=== PATIENT | male | born 1960 | race Caucasian/White ===

== ENCOUNTER 2024-03-19 10:21 | Inpatient (IN) | payer BC, SELFPAY ==
[2024-03-19] VITALS (7 sets, daily range): BP systolic 119–147; BP diastolic 75–99; PULSE 69–86; RESP 17–18; TEMP 36.7–37; O2SAT 93–98; BMI 38.0
--- NOTE | 2024-03-19 10:42 | XRR_ITS ---
PROCEDURE INFORMATION: Exam: XR Chest Exam date and time: 03/19/2024 11:32 AM Age: 63 years old Clinical indication: Cough and dyspnea; Additional info: Dyspnea/cough TECHNIQUE: Imaging protocol: Radiologic exam of the chest. Views: 1 view. COMPARISON: CT abdomen pelvis wo con [id number] 03/19/2024 11:23 AM FINDINGS: Lungs: No consolidating infiltrates are noted. There is mild linear scarring within the right midlung Pleural spaces: Unremarkable. No pleural effusion. No pneumothorax. Heart/Mediastinum: Unremarkable. No cardiomegaly. There is a calcified density within the left infrahilar region which may reflect a calcified lymph node. Bones/joints: There are postsurgical changes of the proximal humeri bilaterally XR/XR chest 1V portable [id number] IMPRESSION: No acute abnormality
--- NOTE | 2024-03-19 10:43 | ED_ITS ---
HPI - Abdominal Pain 2 General: Chief Complaint: Abdominal Pain Stated Complaint: abd pain Time Seen by Provider: 03/19/24 10:41 Source: patient Mode of arrival: ambulatory History of Present Illness: 61-year-old male presents to the emergen cy room with complaints of abdominal pain he said for the last 2 to 3 days. No bowel movement since then poor appetite. No fever sweats or chills. No hematochezia or melena. He denies any dysuria urgency or frequency or hematuria. MD elicited complaint: abdominal pain Associated Symptoms: Denies chills, dysuria and fever(s) Review of Systems 2 Const: Denies: fever(s) or chills Card: Denies: chest pain Resp: Denies: dyspnea GI: Denies: abdominal pain : Denies: dysuria, urinary frequency or urinary urgency Musc: Denies: neck pain or back pain Skin/Breast: Denies: rash PFSH ED 2 PFSH: Medical History History of kidney stones History of ITP Surgical History History of colonoscopy Family History Mother CAD (coronary artery disease) Hypertension Social History Smoking and tobacco/nicotine status: never used tobacco/nicotine Alcohol intake: never Substance/Drug Use: never Physical Exam 2 Const: COMMON NORMALS: no acute distress GENERAL APPEARANCE: cooperative and comfortable ORIENTATION/CONSCIOUSNESS: Yes awake, Yes oriented to person, Yes oriented to place and Yes oriented to time HENMT: COMMON NORMALS: normocephalic, atraumatic and hearing grossly normal bilaterally HEAD & SCALP: normocephalic and atraumatic Resp: COMMON NORMALS: normal respiratory effort, No retractions, No use of accessory muscles and clear to auscultation bilaterally AUSCULTATION: clear to auscultation bilaterally Cardio: COMMON NORMALS: regular rate, regular rhythm and No murmurs present (Cardio) RATE: regular rate RHYTHM: regular rhythm GI: COMMON NORMALS: Soft to palpation and No hepatosplenomegaly present A USCULTATION: Yes normoactive bowel sounds PALPATION: Yes Soft to palpation, No Tenderness to palpation present (GI), No Guarding due to palpation present (GI) and Yes No hepatosplenomegaly present Extremity: COMMON NORMALS: normal to inspection, capillary refill normal, no clubbing, cyanosis or edema, no calf tenderness and no pedal edema Neuro: SENSORIUM/ORIENTATION: Yes oriented to person, Yes oriented to place and Yes oriented to time Skin: COMMON NORMALS: no rashes or lesions noted GENERAL SKIN EXAM: no rashes or lesions noted Course 2 Vital Signs: Vital signs: Vital Signs Temperature 98.4 F 03/20/24 11:27 Pulse Rate 69 03/20/24 11:27 Respiratory Rate 18 03/20/24 11:27 Blood Pressure 151/88 03/20/24 11:27 Pulse Oximetry 95 03/20/24 11:27 Oxygen Delivery Me thod Room Air 03/20/24 11:27 MDM - Abdominal Pain Medical Decision Making Acute pancreatitis no sign of choledocholithiasis discussed Dr. Sam and there is no dilation of common bile duct, she does not believe there is any occult choledocholithiasis based on radiographic exams.. Will admit lipase is 1100. Triglycerides were normal discussed with hospitalist orders written Medical Records I reviewed the patient's medical records. Lab Data I reviewed the patient's lab results. 03/20/24 04:41 03/20/24 04:41 Labs/Radiology: Radiology Impressions Chest X-Ray 03/19/24 10:42 IMPRESSION: No acute abnormality Abdomen/Pelvis CT 03/19/24 10:46 IMPRESSION: 1. Cholecystitis versus pancreatitis described above. Pancreatitis is favored. 2. Inflammatory stranding with edema about the body of the pancreas worse about the pancreatic head with suggestion of pancreatic head edema suspicious for pancreatitis. Recommend correlation with pancreatic function studies. 3. Mild diffuse wall thickening involving the gallbladder with induration in the gallbladder fossa. Recommend correlation with biliary function studies. 4. Chronic RIGHT staghorn calculus. No hydronephrosis. 5. RIGHT renal cysts described above. 6. Enlarged prostate measuring 4.5 cm. Recommend correlation PSA. Gallbladder Ultrasound 03/19/24 11:21 IMPRESSION: 1. Very mild gallbladder hydrops. No significant wall thickening. No pericholecystic fluid identified by ultrasound. 2. Small amount of sludge within the gallbladder. No shadowing stones. 3. No common bile duct dilatation. 4. Simple cyst RIGHT kidney. Cholangiopancreatography MRI 03/19/24 13:08 IMPRESSION: 1. Normal common bile duct. No obstruction. 2. Normal pancreatic duct. 3. Acute inflammatory process centered around the second portion of the duodenum and the pancreatic head and to a lesser extent the gallbladder. Laboratory Results WBC 18.12 10^3/uL (3.29-11.43) H 03/19/24 10:50 RBC 4.80 10^6/uL (3.85-5.65) 03/19/24 10:50 Hgb 15.40 g/dL (11.27-16.99) 03/19/24 10:50 Hct 46.1 % (37-53) 03/19/24 10:50 MCV 96.0 fl (82-101) 03/19/24 10:50 MCH 32.1 pg (27-33) 03/19/24 10:50 MCHC 33.4 g/dL (30-55) 03/19/24 10:50 RDW 13.2 % (12.1-15.1) 03/19/24 10:50 Plt Count 135 10^3/cmm (157-399) L 03/19/24 10:50 MPV 11.9 fL (7.4-10.4) H 03/19/24 10:50 Neut % (Auto) 90.8 % 03/19/24 10:50 Lymph % (Auto) 2.7 % 03/19/24 10:50 [place] % (Auto) 5.7 % 03/19/24 10:50 Eos % (Auto) 0.3 % 03/19/24 10:50 Baso % (Auto) 0.1 % 03/19/24 10:50 Neut # (Auto) 16.45 10^3/uL (1.8-7.7) H 03/19/24 10:50 Lymph # (Auto) 0.5 10^3/uL (0.8-4.8) L 03/19/24 10:50 [place] # (Auto) 1.0 10^3/uL (0.2-0.9) H 03/19/24 10:50 Eos # (Auto) 0.1 10^3/uL (0.0-0.8) 03/19/24 10:50 Baso # (Auto) 0.0 10^3/uL (0.0-0.1) 03/19/24 10:50 Nucleated RBC % (auto) 0 % 03/19/24 10:50 Nucleated RBCs # 0.0 /100WBC 03/19/24 10:50 ESR 16 mm/hr (0-10) H 03/19/24 10:50 Sodium 138 mmol/L (136-145) 03/19/24 10:50 Potassium 3.9 mmol/L (3.5-5.1) 03/19/24 10:50 Chloride 99 mmol/L (98-107) 03/19/24 10:50 Carbon Dioxide 26 mmol/L (22-29) 03/19/24 10:50 Anion Gap 16.9 (5-19) 03/19/24 10:50 BUN 24 mg/dL (8-23) H 03/19/24 10:50 Creatinine 1.2 mg/dL (0.7-1.2) 03/19/24 10:50 GFR Calculation 61.3 mL/min (90-130) L 03/19/24 10:50 Glucose 127 mg/dL (65-115) H 03/19/24 10:50 Calculated Osmolality 292 mOsm/kg (285-295) 03/19/24 10:50 Lactic Acid 1.2 mmol/L (0.5-2.2) 03/19/24 11:20 Calcium 10.1 mg/dL (8.5-10.5) 03/19/24 10:50 Total Bilirubin 2.3 mg/dL (0.15-1.2) H 03/19/24 10:50 AST 29 U/L (0-40) 03/19/24 10:50 ALT 6 U/L (0-41) 03/19/24 10:50 Alkaline Phosphatase 99 U/L (40-130) 03/19/24 10:50 C-Reactive Protein 30.0 mg/L (0.0-4.9) H 03/19/24 10:50 Total Protein 8.0 g/dL (6.6-8.7) 03/19/24 10:50 Albumin 4.7 g/dL (3.5-5.2) 03/19/24 10:50 Globulin 3.3 g/dL (1.3-4.6) 03/19/24 10:50 Triglycerides 110 mg/dL (0-150) 03/19/24 10:50 Lipase 1119 U/L (13-60) H 03/19/24 10:50 Procalcitonin 0.20 ng/mL (0-0.5) 03/19/24 10:50 Urine Color Yellow (Yellow) 03/19/24 11:19 Urine Appearance Cloudy (CLEAR) A 03/19/24 11:19 Urine pH 5 (5-7) 03/19/24 11:19 Ur Specific [place] 1.025 (1.005-1.030) 03/19/24 11:19 Urine Protein 2+ (Negative) H 03/19/24 11:19 Urine Glucose (UA) Norm (Normal) 03/19/24 11:19 Urine Ketones 1+ (Negative) H 03/19/24 11:19 Urine Blood 2+ (Negative) H 03/19/24 11:19 Urine Nitrate Positive (Negative) H 03/19/24 11:19 Urine Bilirubin 1+ (Negative) H 03/19/24 11:19 Urine Urobilinogen 4 mg/dL (Negative) H 03/19/24 11:19 Ur Leukocyte Esterase 2+ (Negative) H 03/19/24 11:19 Urine RBC 10-15 /hpf (0-2) H 03/19/24 11:19 Urine WBC 25-40 /hpf (0-5) H 03/19/24 11:19 Ur Squamous Epith Cells 0-4 /hpf (0-5) H 03/19/24 11:19 Amorphous Sediment Not Reportable 03/19/24 11:19 Urine Bacteria 2+ /hpf (NONE) H 03/19/24 11:19 Urine Mucus 1+ /hpf 03/19/24 11:19 All radiology interpretation(s) finalized by discharge Discharge Plan Discharge Patient Disposition: Admitted As Inpatient Admit Provider: Deon Hsu Clinical Impression: Pancreatitis, Cholecystitis Condition: Stable Coding Level of Care Code ED Transitional Nurse for Skye Lerma
--- NOTE | 2024-03-19 10:46 | CT_ITS ---
WS: [id number] CT ABDOMEN PELVIS TECHNIQUE: Noncontrast CT of the abdomen and pelvis with coronal and sagittal reformatted images. CLINICAL INFORMATION: Abdominal pain COMPARISON: None. DLP: 1200.[address] scans at [facility] use at least one of these dose optimization techniques: automated e xposure control; mA and/or kV adjustment per patient size (includes targeted exams where dose is matc hed to clinical indication); or iterative reconstruction. FINDINGS: Inflammatory stranding and edema about the pancreas worse about the pancreatic head. This extends to involve the adjacent traversing duodenum. In addition there is mild thickening and induration in the gallbladder fossa. Recommend correlation with pancreatic enzymes and biliary function studies. Pancre atitis versus cholecystitis. No visualized radiopaque gallstones. No intrahepatic biliary ductal dila tation. Chronic staghorn calculus RIGHT renal pelvis. No hydronephrosis. Ureters are decompressed bilaterally . RIGHT renal cysts measuring 4.4 cm upper pole and 3.8 cm lower pole. Normal GE junction. Normal sigmoid colon. Appendix is not visualized. No evidence of acute appendicitis. Normal caliber abdominal aorta. Mild aortic calcification. Small fat-containing umbilical hernia. Mil d prostate enlargement measuring 4.5 cm. Mild diffuse bladder wall thickening. A few sigmoid divertic tone. No evidence of acute diverticulitis. Colon is decompressed. Trace fluid in the pelvis. Fat-conta ining inguinal hernias. CT/CT abdomen pelvis wo con [id number] IMPRESSION: 1. Cholecystitis versus pancreatitis described above. Pancreatitis is favored. 2. Inflammatory stranding with edema about the body of the pancreas worse abou t the pancreatic head with suggestion of pancreatic head edema suspicious for p ancreatitis. Recommend correlation with pancreatic function studies. 3. Mild diffuse wall thickening involving the gallbladder with induration in t he gallbladder fossa. Recommend correlation with biliary function studies. 4. Chronic RIGHT staghorn calculus. No hydronephrosis. 5. RIGHT renal cysts described above. 6. Enlarged prostate measuring 4.5 cm. Recommend correlation PSA.
[2024-03-19 10:56] LABS: Basophils % 0.1 %; Eosinophils # 0.1 10^3/uL (0.0-0.8); Eosinophils % 0.3 %; Hematocrit 46.1 % (37-53); Lymphocytes # 0.5 10^3/uL (0.8-4.8); Lymphocytes % 2.7 %; Mean Corpuscular HGB Conc 33.4 g/dL (30-55); Mean Corpuscular Hemoglobin 32.1 pg (27-33); Mean Platelet Volume 11.9 fL (7.4-10.4); Monocytes % 5.7 %; Neutrophils # 16.45 10^3/uL (1.8-7.7); Neutrophils % 90.8 %; Nucleated Red Blood Cells % 0 %; Platelet Count 135 10^3/cmm (157-399); Red Cell Distribution Width 13.2 % (12.1-15.1); White Blood Count 18.12 10^3/uL (3.29-11.43)
[2024-03-19 11:15] LABS: Alanine Aminotransferase 6 U/L (0-41); Albumin Level 4.7 g/dL (3.5-5.2); Alkaline Phosphatase 99 U/L (40-130); Anion Gap 16.9 (5-19); Aspartate Amino Transferase 29 U/L (0-40); Blood Urea Nitrogen 24 mg/dL (8-23); Calcium 10.1 mg/dL (8.5-10.5); Carbon Dioxide 26 mmol/L (22-29); Chloride 99 mmol/L (98-107); Creatinine Clr Calc Pharmacy 77.9993; Globulin 3.3 g/dL (1.3-4.6); Glomerular Filtration Rate 61.3 mL/min (90-130); Glucose 127 mg/dL (65-115); Osmolality Calculated 292 mOsm/kg (285-295); Potassium 3.9 mmol/L (3.5-5.1); Sodium 138 mmol/L (136-145); Total Bilirubin 2.3 mg/dL (0.15-1.2)
[2024-03-19] MEDS: sodium chloride 0.9% 1,000 ML 999 ML IV ×2 (11:17→11:42)
--- NOTE | 2024-03-19 11:21 | US_ITS ---
WS: [id number] RIGHT UPPER QUADRANT ULTRASOUND HISTORY: Elevated T. bili leukocytosis COMPARISON: CT 03/19/2024 Liver: 20.5 cm in length. Mildly enlarged liver. No intrahepatic duct dilatation. Portal Vein: Not imaged. Gallbladder: Very mild gallbladder hydrops. There is a very small amount of sludge within the gallbla dder. No shadowing stones are identified. There are a couple echogenic foci in the gallbladder which may be small stones within the sludge or debris. CBD: 0.5 cm Pancreas: Not visualized. Right kidney: 10.6 cm in length. Normal size kidney. Simple cyst upper pole 3.0 x 3.6 x 3.0 cm. Nonob structing calcifications in the central renal pelvis. The largest measures 1.4 x 0.4 x 0.8 cm. Aorta and IVC: Unremarkable abdominal aorta and IVC. No ascites. US/US gall bladder [id number] IMPRESSION: 1. Very mild gallbladder hydrops. No significant wall thickening. No perichole cystic fluid identified by ultrasound. 2. Small amount of sludge within the gallbladder. No shadowing stones. 3. No common bile duct dilatation. 4. Simple cyst RIGHT kidney.
[2024-03-19 11:22] LABS: Lipase 1119 U/L (13-60)
[2024-03-19 11:43] LABS: Lactic Sepsis W/Reflex 1.2 mmol/L (0.5-2.2)
[2024-03-19 11:48] LABS: Protein Urine 2+ (Negative); Specific Gravity, Urine 1.025 (1.005-1.030); Urine Appearance Cloudy (CLEAR); Urine Color Yellow (Yellow); pH Urine 5 (5-7)
[2024-03-19 11:49] LABS: Add Urine Culture? Yes; Add Urine Microscopic? YES; Bacteria Urine 2+ /hpf; Bilirubin Urine 1+ (Negative); Blood Urine 2+ (Negative); Glucose Urine UA Norm (Normal); Ketones Urine 1+ (Negative); Leukocyte Esterase Urine 2+ (Negative); Mucus Urine 1+ /hpf; Nitrate Urine Positive (Negative); Squamous Epithelial Cell Urine 0-4 /hpf (0-5); Urobilinogen Urine 4 mg/dL (Negative); WBC Urine 25-40 /hpf (0-5)
[2024-03-19 11:50] LABS: Triglycerides 110 mg/dL (0-150)
[2024-03-19] MEDS: piperacillin-tazobactam 3.375 GM in sodium chloride 0.9% (plus) 50 ML IV ×2 (12:46→17:16)
--- NOTE | 2024-03-19 13:08 | MR_ITS ---
WS: [id number] MRCP (MAGNETIC RESONANCE CHOLANGIOPANCREATOGRAPHY) HISTORY: Gallstone pancreatitis. COMPARISON: CT abdomen 03/19/2024, ultrasound 03/19/2024. TECHNIQUE: Multiple sequences are performed to evaluate the intra and extrahepatic ducts. Common bile duct is well demonstrated and normal measuring 4 mm. No filling defect or obstruction. No intrahepatic dilatation. Normal pancreatic duct at 3 mm also. Reidentified is inflammation surrounding the pancreatic head and duodenum and to a lesser extent the gallbladder. There is fluid and inflammation extending along the RIGHT paracolic gutter. No stones are identified within the gallbladder lumen. There is a very small amount of adjacent peric holecystic fluid. There are a few tiny scattered cysts within the liver. Multiple RIGHT renal cysts. The largest is lobulated measuring 3.8 x 5.2 cm from the lower pole. MR/MR MRCP [id number] IMPRESSION: 1. Normal common bile duct. No obstruction. 2. Normal pancreatic duct. 3. Acute inflammatory process centered around the second portion of the duoden um and the pancreatic head and to a lesser extent the gallbladder.
--- NOTE | 2024-03-19 13:17 | PC.NURSE ---
PT TAKEN TO MRI IN WHEELCHAIR.
[2024-03-19 13:36] LABS: Erythrocyte Sedimentation Rate 16 mm/hr (0-10)
--- NOTE | 2024-03-19 15:11 | PM.HP ---
Providers/Chief Complaint Admitting Physician: Deon Hsu MD Chief Complaint: abd pain History of Present Illness Eh Win is a 63 year old male with a past medical history of ITP, on Promacta, hypertension, history of Parkinson's disease, who presents [facility] due to abdominal pain. Patient tells me that yesterday evening, he started develop epigastric pain, right upper quadrant pain, denies any fevers, no chills, no bloody or black stools, no lack of stooling, denies any alcohol use, he has been off steroids for his ITP since 2019, yesterday after dinner he did experience epigastric and right upper quadrant pain, denies any recent trauma, denies a history of cholecystitis, Review of Systems Const: Denies: fever(s) Card: Denies: chest pain Resp: Denies: dyspnea GI: Reports: abdominal pain Medications/Allergies Home Medications Medication Instructions Recorded Confirmed Last Taken Type carbidopa ER 25 mg-levodopa 100 mg 1 tab PO TID 03/19/24 03/19/24 03/19/24 History tablet,extended release coenzyme Q10 100 mg capsule 200 mg PO BID 03/19/24 03/19/24 03/19/24 History (CoQ-10) eltrombopag olamine 12.5 mg tablet 12.5 mg PO .QOD 03/19/24 03/19/24 Unknown History (Promacta) fluticasone propionate 50 1 spray intranasal DAILY PRN 03/19/24 03/19/24 Unknown History mcg/actuation nasal ALLERGIES spray,suspension halobetasol propionate 0.05 % 1 applic topical BID PRN UNKNOWN 03/19/24 03/19/24 Unknown History topical cream hydrochlorothiazide 25 mg tablet 25 mg PO DAILY 03/19/24 03/19/24 03/19/24 History olmesartan 20 mg tablet 20 mg PO DAILY 03/19/24 03/19/24 03/19/24 History rasagiline 1 mg tablet 1 mg PO DAILY 03/19/24 03/19/24 03/19/24 History Allergies Allergy/AdvReac Type Severity Reaction Status Date / Time No Known Allergies Allergy Verified 03/19/24 10:43 PFSH Acute PFSH: Medical History History of kidney stones History of ITP Surgical History History of colonoscopy Family History Mother CAD (coronary artery disease) Hypertension Social History Smoking and tobacco/nicotine status: never used tobacco/nicotine Alcohol intake: never Substance/Drug Use: never Vitals/I&O/Wt Last Vital Signs Temp 98.0 F 03/19/24 10:38 Pulse 74 03/19/24 14:06 Resp 17 03/19/24 10:38 BP 147/99 03/19/24 14:06 Pulse Ox 98 03/19/24 14:06 O2 Del Method Room Air 03/19/24 14:06 03/19/24 03/19/24 03/19/24 06:59 14:59 22:59 Intake Total 2049 Balance 2049 Weight last 48 hrs Weight 113.398 kg Physical Exam Const: COMMON NORMALS: no acute distress and patient oriented x3 HENMT: COMMON NORMALS: normocephalic HEAD & SCALP: normocephalic Neck/C-Spine: COMMON NORMALS: no JVD Resp: COMMON NORMALS: normal respiratory effort, No retractions, No use of accessory muscles and clear to auscultation bilaterally AUSCULTATION: clear to auscultation bilaterally Cardio: COMMON NORMALS: regular rate, regular rhythm, S1 normal heart sound present and S2 normal heart sound present RATE: regular rate RHYTHM: regular rhythm HEART SOUNDS: S1 normal heart sound present and S2 normal heart sound present GI: COMMON NORMALS: Normal to inspection, nondistended, normoactive bowel sounds present INSPECTION: Yes normal to inspection and Yes abdominal distension AUSCULTATION: Yes normoactive bowel sounds OTHER: Epigastric discomfort, on palpation, right upper quadrant pain on palpation Extremity: COMMON NORMALS: no calf tenderness and no pedal edema Neuro: COMMON NORMALS: patient oriented x3 Psych: COMMON NORMALS: mental status grossly normal Data 03/19/24 10:50 03/19/24 10:50 Micro: Microbiology 03/19/24 11:15 Blood Culture - Preliminary Blood SPECIMEN COLLECTED 03/19/24 11:20 Blood Culture - Preliminary Blood SPECIMEN COLLECTED A&P Assessment and plan (1) Pancreatitis: (2) Cholecystitis: (3) UTI (urinary tract infection): Plan Acute pancreatitis, with concerns for possible gallstone pancreatitis, with acute cholecystitis gallbladder US 1. Very mild gallbladder hydrops. No significant wall thickening. No pericholecystic fluid identified by ultrasound. 2. Small amount of sludge within the gallbladder. No shadowing stones. 3. No common bile duct dilatation. 4. Simple cyst RIGHT kidney. CT/CT abdomen pelvis wo con [id number] IMPRESSION: 1. Cholecystitis versus pancreatitis described above. Pancreatitis is favored. 2. Inflammatory stranding with edema about the body of the pancreas worse about the pancreatic head with suggestion of pancreatic head edema suspicious for pancreatitis. Recommend correlation with pancreatic function studies. 3. Mild diffuse wall thickening involving the gallbladder with induration in the gallbladder fossa. Recommend correlation with biliary function studies. 4. Chronic RIGHT staghorn calculus. No hydronephrosis. 5. RIGHT renal cysts described above. 6. Enlarged prostate measuring 4.5 cm. Recommend correlation PSA. mrcp MR/MR MRCP [id number] IMPRESSION: 1. Normal common bile duct. No obstruction. 2. Normal pancreatic duct. 3. Acute inflammatory process centered around the second portion of the duodenum and the pancreatic head and to a lesser extent the gallbladder. ? Plan ? N.p.o. ? IV fluids ? Continue Zosyn ? Bowel rest ? Serial abdominal exams ? Spoke to general surgery, Dr. Churchill, discussed ordering MRCP, results as above, will consult for consideration of cholecystectomy ? Full code ? SCDs for DVT prophylaxis, Lovenox UTI, with history of chronic right staghorn colliculi ? Plan ? Follow urine cultures ? Follow blood cultures ? Continue Zosyn History of ITP Attestations Medical Necessity Statement*: Patient requires hospitalization, inpatient, greater than 2 midnights, for acute pancreatitis, with concern for gallstone pancreatitis, with acute cholecystitis Diagnoses Pancreatitis K85.90 Cholecystitis K81.9 UTI (urinary tract infection) N39.0
[2024-03-19 15:37] LABS: Lactic Sepsis W/Reflex 1.5 mmol/L (0.5-2.2)
[2024-03-19] MEDS: sodium chloride 0.9% 1,000 ML 125 ML IV ×2 (15:43→23:34)
[2024-03-19 15:47] LABS: Chol HDL Ratio 3.74 mg/dL (1.0-5.00); Cholesterol 142 mg/dL (0-200); HDL Cholesterol 38 mg/dL (60-100); LDL Cholesterol Calculated 84 mg/dL (50-129); LDL HDL Ratio 2.21 RATIO (0.00-3.22); NT Pro B Type Natriuretic Pept 165 pg/mL (0-125); Thyroid Stimulating Hormone 2.05 uIU/mL (0.27-4.20); Triglycerides 100 mg/dL (0-150)
[2024-03-19] MEDS: pantoprazole 40 mg SDV IVP (15:50)
[2024-03-19] MEDS: carbidopa-levodopa 25-100mg Tablet 1 EACH PO (20:47)
[2024-03-19] MEDS: acetaminophen 325 mg Tablet 650 MG PO (20:52)
--- NOTE | 2024-03-19 21:08 | PC.NURSE ---
Patient declined scheduled dose of lovenox due to history of ITP. Education provided.
[2024-03-20] VITALS (8 sets, daily range): BP systolic 121–151; BP diastolic 66–90; PULSE 68–78; RESP 14–18; TEMP 36.8–37.2; O2SAT 93–95
[2024-03-20] MEDS: piperacillin-tazobactam 3.375 GM in sodium chloride 0.9% (plus) 50 ML IV ×3 (01:07→17:36)
[2024-03-20] MEDS: HYDROcodone-acetaminophen 5-325 mg Tablet 1 TAB PO ×3 (01:19→21:15)
[2024-03-20 05:30] LABS: Basophils % 0.1 %; Eosinophils # 0.2 10^3/uL (0.0-0.8); Eosinophils % 1.5 %; Hematocrit 39.8 % (37-53); Lymphocytes # 0.5 10^3/uL (0.8-4.8); Lymphocytes % 3.3 %; Mean Corpuscular HGB Conc 33.2 g/dL (30-55); Mean Corpuscular Hemoglobin 31.9 pg (27-33); Mean Corpuscular Volume 96.1 fl (82-101); Mean Platelet Volume 13.6 fL (7.4-10.4); Monocytes # 1.2 10^3/uL (0.2-0.9); Monocytes % 8.1 %; Neutrophils # 12.68 10^3/uL (1.8-7.7); Neutrophils % 86.7 %; Nucleated Red Blood Cells % 0 %; Platelet Count 108 10^3/cmm (157-399); Red Blood Count 4.14 10^6/uL (3.85-5.65); Red Cell Distribution Width 13.5 % (12.1-15.1); White Blood Count 14.63 10^3/uL (3.29-11.43)
[2024-03-20 05:55] LABS: Alanine Aminotransferase < 5 U/L (0-41); Albumin Level 3.8 g/dL (3.5-5.2); Alkaline Phosphatase 76 U/L (40-130); Anion Gap 13.6 (5-19); Aspartate Amino Transferase 16 U/L (0-40); Blood Urea Nitrogen 20 mg/dL (8-23); Calcium 8.7 mg/dL (8.5-10.5); Carbon Dioxide 23 mmol/L (22-29); Chloride 109 mmol/L (98-107); Creatinine Clr Calc Pharmacy 83.0172; Globulin 2.6 g/dL (1.3-4.6); Glomerular Filtration Rate 67.8 mL/min (90-130); Glucose 111 mg/dL (65-115); Magnesium 1.9 mg/dL (1.7-2.3); Osmolality Calculated 297 mOsm/kg (285-295); Phosphorus 2.5 mg/dL (2.5-4.5); Potassium 3.6 mmol/L (3.5-5.1); Sodium 142 mmol/L (136-145); Total Bilirubin 2.1 mg/dL (0.15-1.2); Total Protein 6.4 g/dL (6.6-8.7)
[2024-03-20] MEDS: carbidopa-levodopa 25-100mg Tablet 1 EACH PO ×3 (08:30→21:15)
[2024-03-20] MEDS: sodium chloride 0.9% 1,000 ML 125 ML IV (08:30)
[2024-03-20] MEDS: morphine 4 mg/mL SDV 1 mL 2 MG IVP (08:44)
[2024-03-20] MEDS: amlodipine 10 mg Tablet PO (12:13)
[2024-03-20] MEDS: ELTROMBOPAG OLAMINE 12.5 EACH PO (12:50)
--- NOTE | 2024-03-20 14:30 | P.CONIM_ITS ---
Providers/Reason For Consult 2 Consulting Physician/Specialty*: Dr. Alton Churchill, DO/General surgery Reason for Consult*: Pancreatitis/cholecystitis Attending Physician: Deon Hsu MD History of Present Illness History of Present Illness Eh Win is a 63 year old male who presented to the hospital with a 3-day history of epigastric abdominal pain that radiated to his back. Eating made the pain worse. Nothing is made the pain better. He does report nausea but denies any emesis. Denies any hematochezia and/or melena. A CT of the abdomen pelvis showed pancreatitis. His lipase was 1100 on admission and his bilirubin was over 2. CT also showed some hydrops of the gallbladder along with inflammation. MRCP was performed and there was no obstruction of the, bile duct. Sludge and stones were seen in the gallbladder. He reports that he does not drink alcohol. He does take hydrochlorothiazide for blood pressure. Review of Systems 2 General: Reports: 10 or more systems reviewed and unremarkable except in HPI and below Medications/Allergies Home Medications Medication Instructions Recorded Confirmed Last Taken Type carbidopa ER 25 mg-levodopa 100 mg 1 tab PO TID 03/19/24 03/19/24 03/19/24 History tablet,extended release coenzyme Q10 100 mg capsule 200 mg PO BID 03/19/24 03/19/24 03/19/24 History (CoQ-10) eltrombopag olamine 12.5 mg tablet 12.5 mg PO .QOD 03/19/24 03/19/24 Unknown History (Promacta) fluticasone propionate 50 1 spray intranasal DAILY PRN 03/19/24 03/19/24 Unknown History mcg/actuation nasal ALLERGIES spray,suspension halobetasol propionate 0.05 % 1 applic topical BID PRN UNKNOWN 03/19/24 03/19/24 Unknown History topical cream hydrochlorothiazide 25 mg tablet 25 mg PO DAILY 03/19/24 03/19/24 03/19/24 History olmesartan 20 mg tablet 20 mg PO DAILY 03/19/24 03/19/24 03/19/24 History rasagiline 1 mg tablet 1 mg PO DAILY 03/19/24 03/19/24 03/19/24 History Allergies Allergy/AdvReac Type Severity Reaction Status Date / Time No Known Allergies Allergy Verified 03/19/24 10:43 Current Medications Generic Name Dose Route Start Last Admin Trade Name Freq PRN Reason Stop Dose Admin Acetaminophen 650 mg 03/19/24 15:12 03/19/24 20:52 Acetaminophen 325 Mg Tablet PO 650 mg Q6H PRN Administration Mild Pain Or Temp >/= 101 Hydrocodone Bitart/Acetaminophen 1 tab 03/20/24 01:12 03/20/24 12:16 Hydrocodone-Acetaminophen 5-325 Mg Tablet PO 1 tab Q4H PRN Administration MODERATE PAIN Amlodipine Besylate 10 mg 03/20/24 12:00 03/20/24 12:13 Amlodipine 10 Mg Tablet PO 10 mg DAILY NATALY Administration Carbidopa/Levodopa 1 each 03/19/24 15:45 03/20/24 08:30 Carbidopa-Levodopa 25-100mg Tablet PO 1 each TID NATALY Administration Enoxaparin Sodium 40 mg 03/19/24 21:00 03/19/24 20:54 Enoxaparin 40 Mg/0.4 Ml Syringe SUBCUT Not Given Q24H NATALY Sodium Chloride 1,000 mls @ 175 mls/hr 03/19/24 15:12 03/20/24 08:30 Sodium Chloride 0.9% IV 125 mls/hr .Q5H43M NATALY Administration Piperacillin Sod/Tazobactam 50 mls @ 12.5 mls/hr 03/19/24 17:00 03/20/24 12:51 Sod 3.375 gm/ Sodium Chloride IV Infused Q8H NATALY Infusion Protocol Morphine Sulfate 2 mg 03/19/24 15:12 03/20/24 08:44 Morphine 4 Mg/Ml Sdv 1 Ml IVP 2 mg Q4H PRN Administration SEVERE PAIN Non-Formulary Medication 1 mg 03/20/24 09:00 03/20/24 08:32 Rasagiline PO Not Given DAILY NATALY Non-Formulary Medication 12.5 mg 03/20/24 09:00 03/20/24 12:50 Eltrombopag Olamine [Promacta] PO 12.5 mg EVERY OTHER DAY NATALY Administration Pantoprazole Sodium 40 mg 03/19/24 15:12 03/19/24 15:50 Pantoprazole 40 Mg Sdv IVP 40 mg Q24H NATALY Administration PFSH Acute 2 PFSH: Medical History History of kidney stones History of ITP Surgical History History of colonoscopy Family History Mother CAD (coronary artery disease) Hypertension Social History Smoking and tobacco/nicotine status: never used tobacco/nicotine Alcohol intake: never Substance/Drug Use: never Vitals/I&O/Wt Last Vital Signs Temp 98.4 F 03/20/24 11:27 Pulse 69 03/20/24 11:27 Resp 18 03/20/24 11:27 BP 151/88 03/20/24 11:27 Pulse Ox 95 03/20/24 11:27 O2 Del Method Room Air 03/20/24 11:27 03/19/24 03/20/24 03/20/24 22:59 06:59 14:59 Intake Total 250 / 2300 1031.25 / 3331.25 1050 / 1050 Balance 250 / 2300 1031.25 / 3331.25 1050 / 1050 Weight last 48 hrs Weight 238 lb 6.4 oz Weight 250 lb Weight 250 lb Physical Exam 2 Narrative: General : Patient is well developed , no acute distress, oriented x3 Head : Normal cephalic, a-traumatic. Ears : Pinnae and external canal are normal. Hearing is normal. Eyes : PERRLA, Sclera and injection are normal. No conjunctival discharge. Nose : Mucous membranes are without erythema. Throat : buccal mucosa is normal, gums are without significant recession or hypertrophy. Lungs : Equal chest rise bilaterally, no use of accessory muscles, trachea is midline. Cor : Rate and rhythm are normal. Abdomen : Soft, ND, mild epigastric tenderness, negative Zavala's, no g/r/m Extremities : No edema, no cyanosis or clubbing, dorsalis pedis pulses are present bilaterally, non-tender to palpation of calves. Upper extremities are normal bilaterally. Back : non-tender to palpation, no CVA tenderness. Neuro : CN II - XII intact, Upper and lower extremities have equal and full strength Data 03/20/24 04:41 03/20/24 04:41 Micro: Microbiology 03/19/24 11:15 Blood Culture - Preliminary Blood NEGATIVE TO DATE 03/19/24 11:20 Blood Culture - Preliminary Blood NEGATIVE TO DATE 03/19/24 11:19 Urine Culture - Preliminary Urine,Clean Catch Gram Negative Rods A&P Assessment and plan (1) Gallstone pancreatitis: Plan IV fluids Clear liquid diet N.p.o. after midnight Laparoscopic cholecystectomy tomorrow The risks and benefits of the procedure, including but not limited to, bleeding, infection, scar, numbness, pain, damage to surrounding structures, damage to common bile duct requiring additional surgery, conversion to an open procedure, were explained to the patient. He is understanding of the risks and wishes to proceed. Coding Level of Care Code 98697 Diagnoses Gallstone pancreatitis K85.10
--- NOTE | 2024-03-20 15:11 | P.PN_ITS ---
Subjective 2 Subjective: Patient was seen this morning, denies any abdominal pain, has not passed any gas from below, has not had a bowel movement, does report low back pain Vitals/I&O/Wt Last Vital Signs Temp 98.4 F 03/20/24 11:27 Pulse 69 03/20/24 11:27 Resp 18 03/20/24 11:27 BP 151/88 03/20/24 11:27 Pulse Ox 95 03/20/24 11:27 O2 Del Method Room Air 03/20/24 11:27 03/20/24 03/20/24 03/20/24 06:59 14:59 22:59 Intake Total 1031.25 / 3331.25 1050 / 1050 Balance 1031.25 / 3331.25 1050 / 1050 Weight last 48 hrs Weight 108.136 kg Weight 113.398 kg Weight 113.398 kg Physical Exam 2 Const: COMMON NORMALS: no acute distress and patient oriented x3 Resp: COMMON NORMALS: normal respiratory effort, No retractions, No use of accessory muscles and clear to auscultation bilaterally AUSCULTATION: clear to auscultation bilaterally Cardio: COMMON NORMALS: regular rate, regular rhythm, S1 normal heart sound present and S2 normal heart sound present RATE: regular rate RHYTHM: r egular rhythm HEART SOUNDS: S1 normal heart sound present and S2 normal heart sound present GI: OTHER: Abdomen soft, distended, good bowel sounds in all 4 quadrants, no guarding, no rebound, rigidity Extremity: COMMON NORMALS: no pedal edema Neuro: COMMON NORMALS: patient oriented x3 Psych: COMMON NORMALS: mental status grossly normal Data 03/20/24 04:41 03/20/24 04:41 Micro: Microbiology 03/19/24 11:15 Blood Culture - Preliminary Blood NEGATIVE TO DATE 03/19/24 11:20 Blood Culture - Preliminary Blood NEGATIVE TO DATE 03/19/24 11:19 Urine Culture - Preliminary Urine,Clean Catch Gram Negative Rods A&P Assessment and plan (1) Pancreatitis: (2) Cholecystitis: (3) UTI (urinary tract infection): Plan Acute pancreatitis, with concerns for gallstone pancreatitis, with acute cholecystitis gallbladder US 1. Very mild gallbladder hydrops. No significant wall thickening. No pericholecystic fluid identified by ultrasound. 2. Small amount of sludge within the gallbladder. No shadowing stones. 3. No common bile duct dilatation. 4. Simple cyst RIGHT kidney. CT/CT abdomen pelvis wo con [id number] IMPRESSION: 1. Cholecystitis versus pancreatitis described above. Pancreatitis is favored. 2. Inflammatory stranding with edema about the body of the pancreas worse about the pancreatic head with suggestion of pancreatic head edema suspicious for pancreatitis. Recommend correlation with pancreatic function studies. 3. Mild diffuse wall thickening involving the gallbladder with induration in the gallbladder fossa. Recommend correlation with biliary function studies. 4. Chronic RIGHT staghorn calculus. No hydronephrosis. 5. RIGHT renal cysts described above. 6. Enlarged prostate measuring 4.5 cm. Recommend correlation PSA. mrcp MR/MR MRCP [id number] IMPRESSION: 1. Normal common bile duct. No obstruction. 2. Normal pancreatic duct. 3. Acute inflammatory process centered around the second portion of the duodenum and the pancreatic head and to a lesser extent the gallbladder. ? Plan ? N.p.o. ? IV fluids ? Continue Zosyn ? Bowel rest ? Serial abdominal exams ? Spoke to general surgery, Dr. Churchill, discussed ordering MRCP, results as above, plan on cholecystectomy tomorrow ? Full code ? SCDs for DVT prophylaxis, Lovenox UTI, with history of chronic right staghorn colliculi ? Plan ? Follow urine cultures ? Follow blood cultures ? Continue Zosyn History of ITP, resume home medication Attestations 2 Medical Necessity Statement*: Patient requires hospitalization for acute pancreatitis, gallstone pancreatitis, UTI Diagnoses Pancreatitis K85.90 Cholecystitis K81.9 UTI (urinary tract infection) N39.0
[2024-03-20] MEDS: sodium chloride 0.9% 1,000 ML 175 ML IV ×2 (16:06→22:10)
[2024-03-20] MEDS: pantoprazole 40 mg SDV IVP (16:06)
[2024-03-21] VITALS (21 sets, daily range): BP systolic 115–147; BP diastolic 64–85; PULSE 66–86; RESP 14–30; TEMP 36.4–37.3; O2SAT 91–99
[2024-03-21] MEDS: piperacillin-tazobactam 3.375 GM in sodium chloride 0.9% (plus) 50 ML IV ×3 (00:28→15:28)
[2024-03-21] MEDS: morphine 4 mg/mL SDV 1 mL 2 MG IVP ×2 (00:37→09:51)
[2024-03-21] MEDS: HYDROcodone-acetaminophen 5-325 mg Tablet 1 TAB PO ×2 (03:10→09:51)
[2024-03-21] MEDS: sodium chloride 0.9% 1,000 ML 175 ML IV ×4 (04:05→21:23)
[2024-03-21 06:20] LABS: Anion Gap 15.6 (5-19); Blood Urea Nitrogen 16 mg/dL (8-23); Calcium 8.1 mg/dL (8.5-10.5); Carbon Dioxide 21 mmol/L (22-29); Chloride 106 mmol/L (98-107); Creatinine Clr Calc Pharmacy 114.1487; Glucose 107 mg/dL (65-115); Osmolality Calculated 290 mOsm/kg (285-295); Potassium 3.6 mmol/L (3.5-5.1); Sodium 139 mmol/L (136-145)
[2024-03-21 06:27] LABS: Magnesium 1.9 mg/dL (1.7-2.3)
[2024-03-21 06:31] LABS: Basophils % 0.1 %; Eosinophils # 0.3 10^3/uL (0.0-0.8); Eosinophils % 1.5 %; Hematocrit 41.3 % (37-53); Lymphocytes # 0.7 10^3/uL (0.8-4.8); Lymphocytes % 3.9 %; Mean Corpuscular HGB Conc 33.2 g/dL (30-55); Mean Corpuscular Volume 96.5 fl (82-101); Mean Platelet Volume 11.9 fL (7.4-10.4); Monocytes # 1.3 10^3/uL (0.2-0.9); Monocytes % 7.7 %; Neutrophils # 14.53 10^3/uL (1.8-7.7); Neutrophils % 86.4 %; Nucleated Red Blood Cells % 0 %; Platelet Count 100 10^3/cmm (157-399); Red Blood Count 4.28 10^6/uL (3.85-5.65); White Blood Count 16.84 10^3/uL (3.29-11.43)
[2024-03-21] MEDS: amlodipine 10 mg Tablet PO (09:51)
[2024-03-21] MEDS: carbidopa-levodopa 25-100mg Tablet 1 EACH PO ×3 (09:52→20:17)
--- NOTE | 2024-03-21 11:48 | P.ANESASSM_ITS ---
Pre-Anesthetic Assessment Height/Weight: Height 1.73 m Weight 108.136 kg Temp Pulse Resp BP Pulse Ox O2 Del Method 98.4 F 69 18 137/81 93 Room Air 03/21/24 11:39 03/21/24 11:39 03/21/24 11:39 03/21/24 11:39 03/21/24 11:39 03/21/24 11:39 Operation Date: 03/21/24 13:35 Proposed Procedures p Laparoscopic Cholecystectomy(Right) - Alton Churchill, DO Social No alcohol and No tobacco Exam alert, oriented x 3, clear to auscultation bilaterally and regular rate & rhythm Airway Submandibular: within normal limits Cervical ROM: within normal limits Mallampati: Class II History/ROS No significant history except as noted GI Gallstone pancreatitis Anesthetic Plan ASA status: 2E Anesthesia: General Medications/Allergies Home Medications Medication Instructions Recorded Confirmed Last Taken Type carbidopa ER 25 mg-levodopa 100 mg 1 tab PO TID 03/19/24 03/19/24 03/19/24 History tablet,extended release coenzyme Q10 100 mg capsule 200 mg PO BID 03/19/24 03/19/24 03/19/24 History (CoQ-10) eltrombopag olamine 12.5 mg tablet 12.5 mg PO .QOD 03/19/24 03/19/24 Unknown History (Promacta) fluticasone propionate 50 1 spray intranasal DAILY PRN 03/19/24 03/19/24 Unknown History mcg/actuation nasal ALLERGIES spray,suspension halobetasol propionate 0.05 % 1 applic topical BID PRN UNKNOWN 03/19/24 03/19/24 Unknown History topical cream hydrochlorothiazide 25 mg tablet 25 mg PO DAILY 03/19/24 03/19/24 03/19/24 History olmesartan 20 mg tablet 20 mg PO DAILY 03/19/24 03/19/24 03/19/24 History rasagiline 1 mg tablet 1 mg PO DAILY 03/19/24 03/19/24 03/19/24 History Allergies Allergy/AdvReac Type Severity Reaction Status Date / Time No Known Allergies Allergy Verified 03/19/24 10:43 Current Medications Generic Name Dose Route Start Last Admin Trade Name Freq PRN Reason Stop Dose Admin Acetaminophen 650 mg 03/19/24 15:12 03/19/24 20:52 Acetaminophen 325 Mg Tablet PO 650 mg Q6H PRN Administration Mild Pain Or Temp >/= 101 Hydrocodone Bitart/Acetaminophen 1 tab 03/20/24 01:12 03/21/24 09:51 Hydrocodone-Acetaminophen 5-325 Mg Tablet PO 1 tab Q4H PRN Administration MODERATE PAIN Amlodipine Besylate 10 mg 03/20/24 12:00 03/21/24 09:51 Amlodipine 10 Mg Tablet PO 10 mg DAILY NATALY Administration Carbidopa/Levodopa 1 each 03/19/24 15:45 03/21/24 09:52 Carbidopa-Levodopa 25-100mg Tablet PO 1 each TID NATALY Administration Enoxaparin Sodium 40 mg 03/19/24 21:00 03/20/24 21:16 Enoxaparin 40 Mg/0.4 Ml Syringe SUBCUT Not Given Q24H NATALY Sodium Chloride 1,000 mls @ 175 mls/hr 03/19/24 15:12 03/21/24 10:45 Sodium Chloride 0.9% IV 175 mls/hr .Q5H43M NATALY Administration Piperacillin Sod/Tazobactam 50 mls @ 12.5 mls/hr 03/19/24 17:00 03/21/24 10:45 Sod 3.375 gm/ Sodium Chloride IV 12.5 mls/hr Q8H NATALY Administration Protocol Morphine Sulfate 2 mg 03/19/24 15:12 03/21/24 09:51 Morphine 4 Mg/Ml Sdv 1 Ml IVP 2 mg Q4H PRN Administration SEVERE PAIN Non-Formulary Medication 1 mg 03/20/24 09:00 03/21/24 09:52 Rasagiline PO Not Given DAILY NATALY Non-Formulary Medication 12.5 mg 03/20/24 09:00 03/20/24 12:50 Eltrombopag Olamine [Promacta] PO 12.5 mg EVERY OTHER DAY NATALY Administration Pantoprazole Sodium 40 mg 03/19/24 15:12 03/20/24 16:06 Pantoprazole 40 Mg Sdv IVP 40 mg Q24H NATALY Administration PFSH Anesthesia Medical History History of kidney stones History of ITP Surgical History History of colonoscopy Family History Mother CAD (coronary artery disease) Hypertension Social History Smoking and tobacco/nicotine status: never used tobacco/nicotine Alcohol intake: never Substance/Drug Use: never Data Anesthesia 03/21/24 06:27 03/21/24 05:16 Short CBC 03/20/24 03/21/24 Range/Units 04:41 06:27 WBC 14.63 H 16.84 H (3.29-11.43) 10^3/uL Hgb 13.20 13.70 (11.27-16.99) g/dL Hct 39.8 41.3 (37-53) % MCV 96.1 96.5 (82-101) fl Plt Count 108 L 100 L (157-399) 10^3/cmm Neut % (Auto) 86.7 86.4 % Neut # (Auto) 12.68 H 14.53 H (1.8-7.7) 10^3/uL BMP 03/20/24 03/21/24 04:41 05:16 Sodium 142 139 Potassium 3.6 3.6 Chloride 109 H 106 Carbon Dioxide 23 21 L BUN 20 16 Creatinine 1.1 0.8 Glucose 111 107 Calcium 8.7 8.1 L Cardiac Enzymes 03/19/24 Range/Units 15:14 NT-Pro-B Natriuret Pep 165 H (0-125) pg/mL Liver Function 03/20/24 Range/Units 04:41 Total Bilirubin 2.1 H (0.15-1.2) mg/dL AST 16 (0-40) U/L ALT < 5 (0-41) U/L Alkaline Phosphatase 76 (40-130) U/L Albumin 3.8 (3.5-5.2) g/dL Urine 03/19/24 Range/Units 11:19 Urine Color Yellow (Yellow) Urine Appearance Cloudy A (CLEAR) Urine pH 5 (5-7) Ur Specific [place] 1.025 (1.005-1.030) Urine Protein 2+ H (Negative) Urine Glucose (UA) Norm (Normal) Urine Ketones 1+ H (Negative) Urine Nitrate Positive H (Negative) Urine Bilirubin 1+ H (Negative) Ur Leukocyte Esterase 2+ H (Negative) Urine RBC 10-15 H (0-2) /hpf Urine WBC 25-40 H (0-5) /hpf Coags 03/19/24 10:50 ESR 16 H C-Reactive Protein 30.0 H Microbiology 03/19/24 11:19 Urine Culture - Preliminary Urine,Clean Catch Gram Negative Rods 03/19/24 11:15 Blood Culture - Preliminary Blood NEGATIVE TO DATE 03/19/24 11:20 Blood Culture - Preliminary Blood NEGATIVE TO DATE Cardiac Studies: 2 No Data to Display
--- NOTE | 2024-03-21 13:20 | P.PN_ITS ---
Vitals/I&O/Wt Last Vital Signs Temp 99.2 F 03/21/24 12:45 Pulse 76 03/21/24 12:45 Resp 18 03/21/24 12:45 BP 131/71 03/21/24 12:45 Pulse Ox 95 03/21/24 12:45 O2 Del Method Room Air 03/21/24 12:45 03/20/24 03/21/24 03/21/24 22:59 06:59 14:59 Intake Total 2720 / 3770 1017.5 / 4787.5 1000 / 1000 Balance 2720 / 3770 1017.5 / 4787.5 1000 / 1000 Weight last 48 hrs Weight 238 lb 6.4 oz Weight 250 lb Data 03/21/24 06:27 03/21/24 05:16 Micro: Microbiology 03/19/24 11:19 Urine Culture - Preliminary Urine,Clean Catch Gram Negative Rods 03/19/24 11:15 Blood Culture - Preliminary Blood NEGATIVE TO DATE 03/19/24 11:20 Blood Culture - Preliminary Blood NEGATIVE TO DATE A&P Assessment and plan (1) Gallstone pancreatitis: Plan Laparoscopic cholecystectomy The risks and benefits of the procedure, including but not limited to, bleeding, infection, scar, numbness, pain, damage to surrounding structures, damage to common bile duct requiring additional surgery, conversion to an open procedure, were explained to the patient. He is understanding of the risks and wishes to proceed. Attestations 2 Medical Necessity Statement*: per primary Coding Level of Care Code [facility] Diagnoses Gallstone pancreatitis K85.10
[2024-03-21] MEDS: lidocaine-epi 2% PF 1:200,000 20 mL SDV XX (13:59)
--- NOTE | 2024-03-21 14:16 | P.PN_ITS ---
Subjective 2 Subjective: Patient was seen this morning, denies any fevers, no chills, no cough, still has mild abdominal pain, denies passing gas from below, denies having a bowel movement, no nausea, no vomiting Vitals/I&O/Wt Last Vital Signs Temp 99.2 F 03/21/24 12:45 Pulse 76 03/21/24 12:45 Resp 18 03/21/24 12:45 BP 131/71 03/21/24 12:45 Pulse Ox 95 03/21/24 12:45 O2 Del Method Room Air 03/21/24 12:45 03/20/24 03/21/24 03/21/24 22:59 06:59 14:59 Intake Total 2720 / 3770 1017.5 / 4787.5 1050 / 1050 Balance 2720 / 3770 1017.5 / 4787.5 1050 / 1050 Weight last 48 hrs Weight 108.136 kg Weight 113.398 kg Physical Exam 2 Const: COMMON NORMALS: no acute distress and patient oriented x3 Resp: COMMON NORMALS: normal respiratory effort, No retractions, No use of accessory muscles and clear to auscultation bilaterally AUSCULTATION: clear to auscultation bilaterally Cardio: COMMON NORMALS: regular rate, regular rhythm, S1 normal heart sound present and S2 normal heart sound present RATE: regular rate RHYTHM: r egular rhythm HEART SOUNDS: S1 normal heart sound present and S2 normal heart sound present GI: COMMON NORMALS: Normal to inspection, nondistended, normoactive bowel sounds present OTHER: Mild diffuse tenderness, no guarding, no rebound, rigidity Extremity: COMMON NORMALS: no pedal edema Neuro: COMMON NORMALS: patient oriented x3 Psych: COMMON NORMALS: mental status grossly normal Data 03/21/24 06:27 03/21/24 05:16 Micro: Microbiology 03/19/24 11:19 Urine Culture - Preliminary Urine,Clean Catch Gram Negative Rods 03/19/24 11:15 Blood Culture - Preliminary Blood NEGATIVE TO DATE 03/19/24 11:20 Blood Culture - Preliminary Blood NEGATIVE TO DATE A&P Assessment and plan (1) Pancreatitis: (2) Cholecystitis: (3) UTI (urinary tract infection): Plan Acute pancreatitis, with concerns for gallstone pancreatitis, with acute cholecystitis gallbladder US 1. Very mild gallbladder hydrops. No significant wall thickening. No pericholecystic fluid identified by ultrasound. 2. Small amount of sludge within the gallbladder. No shadowing stones. 3. No common bile duct dilatation. 4. Simple cyst RIGHT kidney. CT/CT abdomen pelvis wo con [id number] IMPRESSION: 1. Cholecystitis versus pancreatitis described above. Pancreatitis is favored. 2. Inflammatory stranding with edema about the body of the pancreas worse about the pancreatic head with suggestion of pancreatic head edema suspicious for pancreatitis. Recommend correlation with pancreatic function studies. 3. Mild diffuse wall thickening involving the gallbladder with induration in the gallbladder fossa. Recommend correlation with biliary function studies. 4. Chronic RIGHT staghorn calculus. No hydronephrosis. 5. RIGHT renal cysts described above. 6. Enlarged prostate measuring 4.5 cm. Recommend correlation PSA. mrcp MR/MR MRCP [id number] IMPRESSION: 1. Normal common bile duct. No obstruction. 2. Normal pancreatic duct. 3. Acute inflammatory process centered around the second portion of the duodenum and the pancreatic head and to a lesser extent the gallbladder. ? Plan ? N.p.o. ? IV fluids ? Continue Zosyn ? Bowel rest ? Serial abdominal exams ? Spoke to general surgery, Dr. Churchill, discussed ordering MRCP, results as above, plan on cholecystectomy today ? Full code ? SCDs for DVT prophylaxis, Lovenox UTI, with history of chronic right staghorn colliculi ? Plan ? Follow urine cultures ? Follow blood cultures ? Continue Zosyn History of ITP, resume home medication, platelet count 100,000, monitor Attestations 2 Medical Necessity Statement*: Patient requires hospitalization for gallstone pancreatitis, UTI, recurrent cholecystectomy Diagnoses Pancreatitis K85.90 Cholecystitis K81.9 UTI (urinary tract infection) N39.0
--- NOTE | 2024-03-21 14:27 | P.OP_ITS ---
Operative Report Date of procedure: March 21, 2024 Surgeon: Alton Churchill DO Brief History: This is a very pleasant 63-year-old gentleman with gallstone pancreatitis. Laparoscopic cholecystectomy was indicated. The risk benefits were explained and documented. Procedure: Preoperative diagnosis: Gallstone pancreatitis Postoperative diagnosis: Same Procedure performed: Laparoscopic cholecystectomy Surgeon: Dr. lAton Churchill DO Estimated blood loss: 5 mL Implants: Surgicel Specimens: Gallbladder to pathology Complications: None apparent Description of procedure: Patient was wheeled into the operative room and placed on the OR table in a supine position. Abdomen was inspected prepped and draped in usual sterile fashion. Time-out was performed and all present were in agreement. A 15 blade scalp was used to make a stab incision in the left upper quadrant and intra- abdominal insufflation was achieved using a Veress needle. After localizing the tissue incisions were made and a 5 millimeter trocar was placed into the umbilicus as well as 2 in the right upper quadrant. A 12 millimeter trocar was placed in the epigastrium. Gallbladder was grasped and elevated. The triangle of Calot was carefully dissected using blunt dissection and electrocautery until the triangle of [place]ot clearly identified. The cystic duct was clipped proximally and double clipped distally. The duct was then ligated proximally. The cystic artery was doubly clipped and ligated. The gallbladder was then removed from the liver bed using electrocautery. The gallbladder was removed f rom the abdomen using an Endo-Catch bag through the epigastric incision. The liver bed was inspected and there was some minor oozing from the gallbladder fossa. This was controlled with electrocautery and a piece of Surgicel. The abdomen was irrigated and suctioned. All ports removed. Skin was washed and dried. Incisions were closed with 4-0 Monocryl in a subcuticular interrupted fashion. Skin glue was applied. Patient tolerated the procedure well.
--- NOTE | 2024-03-21 15:09 | ANE.PACU2 ---
Inpatient post-anesthesia follow up: Airway intact: Yes Vital signs: Temperature 97.8 F Pulse Rate 75 Respiratory Rate 19 Blood Pressure 145/76 Pulse Oximetry 93 Oxygen Delivery Me thod Room Air Oxygen Flow Rate 8 Fraction of Inspir ed Oxygen Hydration adequate: Yes Pain level: 3 Mental status: Baseline
[2024-03-21] MEDS: pantoprazole 40 mg SDV IVP (15:25)
[2024-03-21 20:40] LABS: Basophils % 0.1 %; Hematocrit 36.5 % (37-53); Lymphocytes # 0.2 10^3/uL (0.8-4.8); Lymphocytes % 1.1 %; Mean Corpuscular HGB Conc 33.4 g/dL (30-55); Mean Corpuscular Hemoglobin 32.2 pg (27-33); Mean Corpuscular Volume 96.3 fl (82-101); Mean Platelet Volume 12.2 fL (7.4-10.4); Monocytes # 0.1 10^3/uL (0.2-0.9); Monocytes % 0.9 %; Neutrophils # 15.52 10^3/uL (1.8-7.7); Neutrophils % 97.5 %; Nucleated Red Blood Cells % 0 %; Platelet Count 83 10^3/cmm (157-399); Red Blood Count 3.79 10^6/uL (3.85-5.65); Red Cell Distribution Width 12.8 % (12.1-15.1); White Blood Count 15.91 10^3/uL (3.29-11.43)
[2024-03-22] VITALS: BP 125/77; PULSE 66; RESP 19; TEMP 36.7; O2SAT 92
[2024-03-22] MEDS: piperacillin-tazobactam 3.375 GM in sodium chloride 0.9% (plus) 50 ML IV ×2 (00:23→08:38)
[2024-03-22] MEDS: sodium chloride 0.9% 1,000 ML 175 ML IV ×2 (02:40→08:37)
[2024-03-22 03:49] LABS: Basophils % 0.1 %; Hematocrit 37.6 % (37-53); Lymphocytes # 0.3 10^3/uL (0.8-4.8); Mean Corpuscular Hemoglobin 32.1 pg (27-33); Mean Corpuscular Volume 97.4 fl (82-101); Monocytes # 0.4 10^3/uL (0.2-0.9); Monocytes % 2.7 %; Neutrophils # 13.65 10^3/uL (1.8-7.7); Neutrophils % 94.9 %; Nucleated Red Blood Cells % 0 %; Platelet Count 86 10^3/cmm (157-399); Red Blood Count 3.86 10^6/uL (3.85-5.65); White Blood Count 14.39 10^3/uL (3.29-11.43)
[2024-03-22 04:00] VITALS: BP 142/66; PULSE 59; RESP 17; TEMP 36.8; O2SAT 95
[2024-03-22 04:29] LABS: Anion Gap 14.9 (5-19); Blood Urea Nitrogen 14 mg/dL (8-23); Calcium 8.3 mg/dL (8.5-10.5); Carbon Dioxide 20 mmol/L (22-29); Chloride 108 mmol/L (98-107); Creatinine Clr Calc Pharmacy 114.1487; Glucose 119 mg/dL (65-115); Osmolality Calculated 290 mOsm/kg (285-295); Potassium 3.9 mmol/L (3.5-5.1); Sodium 139 mmol/L (136-145)
[2024-03-22 04:41] LABS: Magnesium 1.9 mg/dL (1.7-2.3)
[2024-03-22 05:36] VITALS: PULSE 55
[2024-03-22 07:45] VITALS: BP 142/85; PULSE 70; RESP 17; TEMP 36.8; O2SAT 96
[2024-03-22] MEDS: amlodipine 10 mg Tablet PO (08:37)
[2024-03-22] MEDS: carbidopa-levodopa 25-100mg Tablet 1 EACH PO (08:37)
[2024-03-22] MEDS: ELTROMBOPAG OLAMINE 12.5 EACH PO (08:46)
--- NOTE | 2024-03-22 12:59 | PM.DCS ---
Discharge Providers Date of Admission: 03/19/24 14:45 Date of Discharge: March 22, 2024 Attending Provider at Admission: Deon Hsu MD Attending Provider at Discharge: Deon Hsu MD Diagnoses at Discharge Discharge Diagnosis (1) Pancreatitis: Status: Acute (2) Cholecystitis: Status: Acute (3) UTI (urinary tract infection): Status: Acute Reason for Visit Reason for Visit: abd pain Hospital Course Hospital Course Eh Win is a 63 year old male with a past medical history of ITP, on Promacta, hypertension, history of Parkinson's disease, who presents [facility] due to abdominal pain. Patient tells me that yesterday evening, he started develop epigastric pain, right upper quadrant pain, denies any fevers, no chills, no bloody or black stools, no lack of stooling, denies any alcohol use, he has been off steroids for his ITP since 2019, yesterday after dinner he did experience epigastric and right upper quadrant pain, denies any recent trauma, denies a history of cholecystitis, cute pancreatitis, with concerns for gallstone pancreatitis, with acute cholecystitis gallbladder US 1. Very mild gallbladder hydrops. No significant wall thickening. No pericholecystic fluid identified by ultrasound. 2. Small amount of sludge within the gallbladder. No shadowing stones. 3. No common bile duct dilatation. 4. Simple cyst RIGHT kidney. CT/CT abdomen pelvis wo con [id number] IMPRESSION: 1. Cholecystitis versus pancreatitis described above. Pancreatitis is favored. 2. Inflammatory stranding with edema about the body of the pancreas worse about the pancreatic head with suggestion of pancreatic head edema suspicious for pancreatitis. Recommend correlation with pancreatic function studies. 3. Mild diffuse wall thickening involving the gallbladder with induration in the gallbladder fossa. Recommend correlation with biliary function studies. 4. Chronic RIGHT staghorn calculus. No hydronephrosis. 5. RIGHT renal cysts described above. 6. Enlarged prostate measuring 4.5 cm. Recommend correlation PSA. mrcp MR/MR MRCP [id number] IMPRESSION: 1. Normal common bile duct. No obstruction. 2. Normal pancreatic duct. 3. Acute inflammatory process centered around the second portion of the duodenum and the pancreatic head and to a lesser extent the gallbladder. -Patient was admitted as inpatient n.p.o., IV fluids, received Zosyn, general surgery was consulted, overall patient's clinical condition improved, patient underwent cholecystectomy, tolerated procedure well, having bowel movements, passing gas, no recurrent abdominal pain will be discharged on instruction to drink plenty of electrolyte balanced fluids, GI soft diet monitor for recurrent abdominal pain, follow-up with general surgery in 2 weeks For his UTI, growing E. coli species, with history of chronic right staghorn colliculi, please follow-up with urology as outpatient, discharged on 5 days of cefdinir For his BPH, please follow-up with urology With his history of ITP, platelet count 86,000 on discharge please follow-up with primary care provider to recheck platelet count as outpatient Physical Exam Const: COMMON NORMALS: no acute distress and patient oriented x3 Resp: COMMON NORMALS: normal respiratory effort, No retractions, No use of accessory muscles and clear to auscultation bilaterally AUSCULTATION: clear to auscultation bilaterally Cardio: COMMON NORMALS: regular rate, regular rhythm, S1 normal heart sound present and S2 normal heart sound present RATE: regular rate RHYTHM: regular rhythm HEART SOUNDS: S1 normal heart sound present and S2 normal heart sound present GI: COMMON NORMALS: Normal to inspection, nondistended, normoactive bowel sounds present OTHER: Surgical site looks clean and dry Extremity: COMMON NORMALS: no pedal edema Neuro: COMMON NORMALS: patient oriented x3 Psych: COMMON NORMALS: mental status grossly normal Discharge Data Studies Completed and Pending Completed Studies During Hospitalization Category Date Time Status CT abdomen pelvis wo con [id number] Stat Cat Scan 03/19/24 10:46 Completed XR chest 1V portable [id number] Stat Exams 03/19/24 10:42 Completed MR MRCP [id number] Stat MRI 03/19/24 13:08 Completed US gall bladder [id number] Stat Ultrasound 03/19/24 11:21 Completed Pending at discharge Category Date Time Status Basic Metabolic Panel AM LABS Lab 03/23/24 04:00 Ordered Blood Culture Stat Lab 03/19/24 11:15 Results Complete Blood Count w/Auto AM LABS Lab 03/23/24 04:00 Ordered Magnesium AM LABS Lab 03/23/24 04:00 Ordered Pathology: Surgical [PTH] Routine Pth 03/21/24 14:39 Received Radiology Impressions Chest X-Ray 03/19/24 10:42 IMPRESSION: No acute abnormality Abdomen/Pelvis CT 03/19/24 10:46 IMPRESSION: 1. Cholecystitis versus pancreatitis described above. Pancreatitis is favored. 2. Inflammatory stranding with edema about the body of the pancreas worse about the pancreatic head with suggestion of pancreatic head edema suspicious for pancreatitis. Recommend correlation with pancreatic function studies. 3. Mild diffuse wall thickening involving the gallbladder with induration in the gallbladder fossa. Recommend correlation with biliary function studies. 4. Chronic RIGHT staghorn calculus. No hydronephrosis. 5. RIGHT renal cysts described above. 6. Enlarged prostate measuring 4.5 cm. Recommend correlation PSA. Gallbladder Ultrasound 03/19/24 11:21 IMPRESSION: 1. Very mild gallbladder hydrops. No significant wall thickening. No pericholecystic fluid identified by ultrasound. 2. Small amount of sludge within the gallbladder. No shadowing stones. 3. No common bile duct dilatation. 4. Simple cyst RIGHT kidney. Cholangiopancreatography MRI 03/19/24 13:08 IMPRESSION: 1. Normal common bile duct. No obstruction. 2. Normal pancreatic duct. 3. Acute inflammatory process centered around the second portion of the duodenum and the pancreatic head and to a lesser extent the gallbladder. Laboratory Results WBC 14.39 10^3/uL (3.29-11.43) H 03/22/24 03:04 RBC 3.86 10^6/uL (3.85-5.65) 03/22/24 03:04 Hgb 12.40 g/dL (11.27-16.99) 03/22/24 03:04 Hct 37.6 % (37-53) 03/22/24 03:04 MCV 97.4 fl (82-101) 03/22/24 03:04 MCH 32.1 pg (27-33) 03/22/24 03:04 MCHC 33.0 g/dL (30-55) 03/22/24 03:04 RDW 13.0 % (12.1-15.1) 03/22/24 03:04 Plt Count 86 10^3/cmm (157-399) L 03/22/24 03:04 MPV 13.0 fL (7.4-10.4) H 03/22/24 03:04 Neut % (Auto) 94.9 % 03/22/24 03:04 Lymph % (Auto) 2.0 % 03/22/24 03:04 Yell % (Auto) 2.7 % 03/22/24 03:04 Eos % (Auto) 0.0 % 03/22/24 03:04 Baso % (Auto) 0.1 % 03/22/24 03:04 Neut # (Auto) 13.65 10^3/uL (1.8-7.7) H 03/22/24 03:04 Lymph # (Auto) 0.3 10^3/uL (0.8-4.8) L 03/22/24 03:04 Yell # (Auto) 0.4 10^3/uL (0.2-0.9) 03/22/24 03:04 Eos # (Auto) 0.0 10^3/uL (0.0-0.8) 03/22/24 03:04 Baso # (Auto) 0.0 10^3/uL (0.0-0.1) 03/22/24 03:04 Nucleated RBC % (auto) 0 % 03/22/24 03:04 Nucleated RBCs # 0.0 /100WBC 03/22/24 03:04 ESR 16 mm/hr (0-10) H 03/19/24 10:50 Sodium 139 mmol/L (136-145) 03/22/24 03:04 Potassium 3.9 mmol/L (3.5-5.1) 03/22/24 03:04 Chloride 108 mmol/L (98-107) H 03/22/24 03:04 Carbon Dioxide 20 mmol/L (22-29) L 03/22/24 03:04 Anion Gap 14.9 (5-19) 03/22/24 03:04 BUN 14 mg/dL (8-23) 03/22/24 03:04 Creatinine 0.8 mg/dL (0.7-1.2) 03/22/24 03:04 GFR Calculation 98.0 mL/min (90-130) 03/22/24 03:04 Glucose 119 mg/dL (65-115) H 03/22/24 03:04 Calculated Osmolality 290 mOsm/kg (285-295) 03/22/24 03:04 Lactic Acid 1.5 mmol/L (0.5-2.2) 03/19/24 15:14 Calcium 8.3 mg/dL (8.5-10.5) L 03/22/24 03:04 Phosphorus 2.5 mg/dL (2.5-4.5) 03/20/24 04:41 Magnesium 1.9 mg/dL (1.7-2.3) 03/22/24 03:04 Total Bilirubin 2.1 mg/dL (0.15-1.2) H 03/20/24 04:41 AST 16 U/L (0-40) 03/20/24 04:41 ALT < 5 U/L (0-41) 03/20/24 04:41 Alkaline Phosphatase 76 U/L (40-130) 03/20/24 04:41 C-Reactive Protein 30.0 mg/L (0.0-4.9) H 03/19/24 10:50 NT-Pro-B Natriuret Pep 165 pg/mL (0-125) H 03/19/24 15:14 Total Protein 6.4 g/dL (6.6-8.7) L 03/20/24 04:41 Albumin 3.8 g/dL (3.5-5.2) 03/20/24 04:41 Globulin 2.6 g/dL (1.3-4.6) 03/20/24 04:41 Triglycerides 100 mg/dL (0-150) 03/19/24 15:14 Cholesterol 142 mg/dL (0-200) 03/19/24 15:14 LDL Cholesterol, Calc 84 mg/dL (50-129) 03/19/24 15:14 HDL Cholesterol 38 mg/dL (60-100) L 03/19/24 15:14 LDL/HDL Ratio 2.21 RATIO (0.00-3.22) 03/19/24 15:14 Cholesterol/HDL Ratio 3.74 mg/dL (1.0-5.00) 03/19/24 15:14 Lipase 1119 U/L (13-60) H 03/19/24 10:50 Procalcitonin 0.20 ng/mL (0-0.5) 03/19/24 10:50 TSH 2.05 uIU/mL (0.27-4.20) 03/19/24 15:14 Urine Color Yellow (Yellow) 03/19/24 11:19 Urine Appearance Cloudy (CLEAR) A 03/19/24 11:19 Urine pH 5 (5-7) 03/19/24 11:19 Ur Specific [place] 1.025 (1.005-1.030) 03/19/24 11:19 Urine Protein 2+ (Negative) H 03/19/24 11:19 Urine Glucose (UA) Norm (Normal) 03/19/24 11:19 Urine Ketones 1+ (Negative) H 03/19/24 11:19 Urine Blood 2+ (Negative) H 03/19/24 11:19 Urine Nitrate Positive (Negative) H 03/19/24 11:19 Urine Bilirubin 1+ (Negative) H 03/19/24 11:19 Urine Urobilinogen 4 mg/dL (Negative) H 03/19/24 11:19 Ur Leukocyte Esterase 2+ (Negative) H 03/19/24 11:19 Urine RBC 10-15 /hpf (0-2) H 03/19/24 11:19 Urine WBC 25-40 /hpf (0-5) H 03/19/24 11:19 Ur Squamous Epith Cells 0-4 /hpf (0-5) H 03/19/24 11:19 Amorphous Sediment Not Reportable 03/19/24 11:19 Urine Bacteria 2+ /hpf (NONE) H 03/19/24 11:19 Urine Mucus 1+ /hpf 03/19/24 11:19 Vitals Last Vital Signs Temp 98.3 F 03/22/24 07:45 Pulse 70 03/22/24 07:45 Resp 17 03/22/24 07:45 BP 142/85 03/22/24 07:45 Pulse Ox 96 03/22/24 07:45 O2 Del Method Room Air 03/22/24 07:45 O2 Flow Rate 8 03/21/24 14:45 Discharge Plan Discharge Patient Disposition: Home Condition: Stable Prescriptions: New hydrocodone-acetaminophen 5-325 mg Tablet 1 tab PO Q6H PRN (Reason: Moderate Pain) 5 Days Qty: 20 0RF cefdinir 300 mg capsule 300 mg PO BID 5 Days Qty: 10 0RF Continued carbidopa-levodopa 25-100 mg tablet extended release 1 tab PO TID halobetasol propionate 0.05 % cream 1 applic TOPICAL BID PRN (Reason: UNKNOWN) hydrochlorothiazide 25 mg tablet 25 mg PO DAILY Flonase 50 mcg/actuation [place],Suspension 1 spray INTRANASAL DAILY PRN (Reason: ALLERGIES) Rx Instructions: administer into each nostril olmesartan 20 mg tablet 20 mg PO DAILY CoQ-10 100 mg Capsule 200 mg PO BID rasagiline 1 mg tablet 1 mg PO DAILY Promacta 12.5 mg tablet 12.5 mg PO .QOD Discharge Orders: Discharge Order (Routine); Ordered 03/22/24 Ordered By: Deon Hsu Referrals: Alton Churchill DO [Physician] - 2 weeks Davis Jurado MD [Referring] - 2 weeks (right staghorn caliculi) Discharge Diet: Cardiac Discharge Activity: Resume usual activity Patient Instructions: Opioid Safety, Post Anesthesia Care Activity Restrictions/Additional Instructions: - Please see your primary care provider in 48 hours recheck platelet count ? For UTI discharged on cefdinir ? Please follow-up with urology -If you have recurrent abdominal pain please go to emergency room Discharge Attestations Time Spent in Discharge Care*: greater than 30 min Quality Metrics Clinical Quality Measures [ No reported AMI, CVA or VTE this stay] Coding Level of Care Code 63618 Total time (in minutes) for Discharge: 45 Diagnoses Pancreatitis K85.90 Cholecystitis K81.9 UTI (urinary tract infection) N39.0
[2024-03-22 14:30] VITALS: BP 142/85; PULSE 70; RESP 17; TEMP 36.8; O2SAT 96
== END 2024-03-22 14:31 | disposition home or self-care (01) | DRG 418 ==
LOC: ER 14:45 → MEDSURG 14:46
PROVIDERS: Surgery; Admitting Provider Family Medicine; Emergency Provider Family Medicine; Visit Provider Family Medicine
PROC: 0FT44ZZ Resection of Gallbladder, Percutaneous Endoscopic Approach (ICD-10-PCS; CPT 47562; principal; 2024-03-21 13:25)
DX: K85.10 Biliary acute pancreatitis without necrosis or infection (principal); D69.3 Immune thrombocytopenic purpura; K80.10 Calculus of gallbladder with chronic cholecystitis without obstruction; N39.0 Urinary tract infection, site not specified; B96.20 Unspecified Escherichia coli [E. coli] as the cause of diseases classified elsewhere; Z87.442 Personal history of urinary calculi; I10 Essential (primary) hypertension; N40.0 Benign prostatic hyperplasia without lower urinary tract symptoms; G20.A1 Parkinson's disease without dyskinesia, without mention of fluctuations
CPT/HCPCS: 36415; 71045; 74176; 74181; 76705; 80048; 80053; 80061; 81001; 83605; 83690; 83735; 83880; 84100; 84145; 84443; 84478; 85025; 85651; 86140; 87040; 87077; 87086; 87186; 88304; 94664; 96365; 99285; C9113; J1100; J2001; J2250; J2270; J2371; J2405; J2543; J2704; J2710; J3010; J3490; J7030

== ENCOUNTER → 2024-04-12 08:44 | Outpatient (BNVA) | payer BC, SELFPAY | PROVIDERS: Visit Provider Family Medicine | DX: D69.3 Immune thrombocytopenic purpura (principal); Z12.5 Encounter for screening for malignant neoplasm of prostate; N40.0 Benign prostatic hyperplasia without lower urinary tract symptoms; G20.A1 Parkinson's disease without dyskinesia, without mention of fluctuations; Z90.49 Acquired absence of other specified parts of digestive tract; N20.0 Calculus of kidney | CPT/HCPCS: 80053; 83036; 84153; 85025 ==

== ENCOUNTER → 2024-10-11 15:30 | Outpatient (BNVA) | payer BC, SELFPAY | PROVIDERS: PCP Family Medicine; Visit Provider Family Medicine | DX: D69.3 Immune thrombocytopenic purpura (principal) | CPT/HCPCS: 85025 ==

== ENCOUNTER → 2025-02-07 14:27 | Outpatient (BNVA) | payer BC, SELFPAY | PROVIDERS: PCP Family Medicine; Visit Provider Family Medicine | DX: N40.0 Benign prostatic hyperplasia without lower urinary tract symptoms (principal); Z12.5 Encounter for screening for malignant neoplasm of prostate; D69.3 Immune thrombocytopenic purpura; I10 Essential (primary) hypertension | CPT/HCPCS: 80053; 80061; 84153; 85025 ==

== ENCOUNTER → 2025-02-14 08:48 | Outpatient (BNVA) | payer BC, SELFPAY | PROVIDERS: PCP Family Medicine; Visit Provider Family Medicine | DX: D69.3 Immune thrombocytopenic purpura (principal) | CPT/HCPCS: 85025 ==

== ENCOUNTER → 2025-02-21 10:36 | Outpatient (BNVA) | payer BC, SELFPAY | PROVIDERS: PCP Family Medicine; Visit Provider Family Medicine | DX: D69.3 Immune thrombocytopenic purpura (principal) | CPT/HCPCS: 85025 ==

== ENCOUNTER → 2025-03-14 09:51 | Outpatient (BNVA) | payer BC, SELFPAY | PROVIDERS: PCP Family Medicine; Visit Provider Family Medicine | DX: D69.3 Immune thrombocytopenic purpura (principal) | CPT/HCPCS: 85025 ==

== ENCOUNTER → 2025-05-18 14:44 | Outpatient (BNVA) | payer BC, SELFPAY | PROVIDERS: PCP Family Medicine; Visit Provider Family Medicine | DX: D69.3 Immune thrombocytopenic purpura (principal) | CPT/HCPCS: 85025 ==

== ENCOUNTER → 2025-05-26 12:55 | Outpatient (BNVA) | payer BC, SELFPAY | PROVIDERS: PCP Family Medicine | DX: R39.9 Unspecified symptoms and signs involving the genitourinary system (principal); R30.0 Dysuria | CPT/HCPCS: 81000; 87077; 87086; 87184 ==

== ENCOUNTER → 2025-06-07 11:19 | Outpatient (BNVA) | payer BC, SELFPAY | PROVIDERS: PCP Family Medicine | DX: D69.3 Immune thrombocytopenic purpura (principal) | CPT/HCPCS: 85025 ==

== ENCOUNTER 2025-06-09 09:03 | Outpatient (CLI) | payer BC, SELFPAY ==
[2025-06-09 09:45] LABS: Hematocrit 43.5 % (37-53); Hemoglobin 14.50 g/dL (11.27-16.99); Mean Corpuscular HGB Conc 33.3 g/dL (30-55); Mean Corpuscular Hemoglobin 31.0 pg (27-33); Mean Corpuscular Volume 92.9 fl (82-101); Nucleated Red Blood Cells % 0 %; Platelet Count 171 10^3/cmm (157-399); Red Blood Count 4.68 10^6/uL (3.85-5.65); White Blood Count 7.00 10^3/uL (3.29-11.43)
== END 2025-06-09 09:04 | disposition home or self-care (01) ==
PROVIDERS: PCP Family Medicine; Visit Provider Family Medicine
DX: D69.3 Immune thrombocytopenic purpura (principal)
CPT/HCPCS: 36415; 85025

== ENCOUNTER → 2025-09-19 15:21 | Outpatient (BNVA) | payer BC, SELFPAY | PROVIDERS: PCP Family Medicine; Visit Provider Family Medicine | DX: I10 Essential (primary) hypertension (principal) | CPT/HCPCS: 80053; 80061; 85025 ==